=== PATIENT | male | born 1955 | race Caucasian/White ===

== ENCOUNTER 2022-03-08 07:30 | Outpatient (RCR) | payer OTHER, BC, SELFPAY ==
--- NOTE | 2022-03-12 09:03 | AT.DPN ---
AT Daily Progress Note AT Daily Progress Note Start: 12/18/21 11:56 Freq: Status: Discharge Protocol: Document 03/08/22 11:44 CMW (Rec: 03/08/22 07:30 CMW [id number]) E-signed By Tate Metzger, MS, LAT, ATC Athletic Training Daily Progress Note Visit Number/Visits Authorized Note Type Discharge Note Visit Number 12 Insurance Information Insurance Name [employer] Insurance Information/Comments [employer] Patient Diagnosis Medical Diagnosis & ICD Code(s) L shoulder pain M25.512 Treating Diagnosis & ICD Code(s) Muscle Weakness M62.81 Muscle wasting and atrophy L upper arm M62.522 Referring Medical Provider Salvador Subjective Subjective Information DOI: 01/06/21 DOS: 08/03/21 Patient presents 32 weeks s/p L RCR, bicep tenodesis. Pt reports feeling good after last visit. Today is his final visit and we are planning to repeat some of the intake testing. Pain Rating NR Current Home Program Information Access Code [email or web address] Pertinent Objective Information Pertinent Objective Information BP: 130/79 HR: 73bpm L shoulder SAD, RCR and bicep tenodesis 08/03/21 ROM: Flexion/Abduction near symmetrical, minor shoulder elevation on involved side. IR/ER small deficit on involved side DASH Score: 38, 44 at intake Work: 8 Hobby: 8 Functional Test Performed & Score Pinch Director Of Web Marketing: L: 16# R: 22# Director Of Web Marketing Strength: L: 92# R: 92# Upper Quarter Strength Test - each test max 2 minutes Prone Row - 10# L: 58 - 2min R: 67 - 2 min Prone Shoulder ER - 2# L: 55 - 2 min R: 64 - 2 min Supine Shoulder IR - 5# Not tested due to lack of L shoulder motion Closed Kinetic Chain Upper Extremity Strength Test Total Touches: 26, 16 at intake Modified Functional Movement Screen Deep Squat: 1 Ankle Clearing Test L: 2 R: 2 Lower Body Motor Control Screen Not Tested Shoulder Mobility Screen Hand Length: 7 L: 1 R: 1 Shoulder Clearing Test L: neg R: neg Straight Leg Raise L: 1 R: 1 Treatment Precautions/Contraindications None Interventions Provided Today Patient Instructed in Risks/Benefits & Yes Consents to Treatment THER EX: To Restore Functional Strength, Dynamic Warmup x 10' ROM, Flexibility Stagger stance heel raise, Frankenstein, lunge and twist, tall marching, sumo, reverse walk with hip flare Quadruped Shoulder Warmup x 10 ' Thoracic rotation, scaption, bird dog, cat/cow Kettlebell Arm Bar - 9# 3 x 20 sec each Band Row - blue 1 x 15 Shoulder IR/ER - neutral - blue 1 x 10 each Lateral BAnd Walk - green x 20' each Quadruped Closed Chain Stability - red flexion, abduction, scaption 1 x 10 each Therapeutic Exercise Flowsheet No Documented Separately Untimed Code Treatment Minutes 110 Timed Code Treatment Minutes 0 Total Treatment Time (Including Timed & 110 Untimed Codes) Assessment & Plan of Care Assessment/Impression Pt showed improvement on repetition of intake testing. Good improvement in Closed Chain Stability test and decreased deficit on involved side with prone row and prone 90/90 ER. Reviewed HEP and added some new exercises. Pt did well with intro of KB arm bar and band exercises. Goals/Functional Outcomes Increased L shoulder ROM, strength and overall function - met Safe lifting techniques for home and working on cars - met Improve squat form - met Improved ability to move from floor to standing - met Daily Plan of Care Discharge Painter Rough Signature/License Tate Metzger MS, LAT, Number ATC # [id number] Discharge Summary Discharge Summary Pt shows good improvement in shoulder ROM, overhead strength, open and closed chain stability. Pt has good improvement in squat and hinge lift techniques. Pt has increased tolerance to cardio intervals on incline treadmill . Pt met goals and shows subjective improvement in symptoms per DASH score. Date of First Session 12/18/21 Date of Last Session 03/08/22 Initial Primary Functional Limitations L shoulder ROM, overhead strength and endurance. Poor squat and hinge lift form. Poor lumbopelvic stability. Pain Level at Discharge NR Interventions Provided During Treatment Therapeutic Exercise Discharge Instructions Continue with HEP and general fitness goals as tolerated. Thank You For This Referral Jose Raul Metzger MS, LAT, ATC
== END 2022-03-08 11:55 | disposition home or self-care (01) ==
LOC: WKPLHLTH 07:30
PROVIDERS: PCP Surgery; Visit Provider Physician Assistant
DX: M25.512 Pain in left shoulder (principal); Z51.89 Encounter for other specified aftercare
CPT/HCPCS: 97110; 97140; 97545; 97750